=== PATIENT | female | born 1990 | race Hispanic/Latino ===

== ENCOUNTER 2019-01-19 06:55 | Outpatient (CLI) | payer OTHER ==
--- NOTE | 2019-01-19 08:16 | ULT ---
OB ULTRASOUND: HISTORY: anatomy. FINDINGS: There is a single live intrauterine gestation with measurements corresponding to an estimated gestati onal age of 19 weeks 4 days and MOUSTAPHA at 06/11/2019. The estimated weight measures 305 gm or 11 ou nces (34% by Hadlock criteria). measurements are as follows: BPD 4.33 cm, 19 weeks 1 day HC 16.80 cm, 19 weeks 4 days AC 14.68 cm, 20 weeks 0 days FL 3.03 cm, 19 weeks 3 days heart rate measures 144 b.p.m. Placenta is anteriorly located. ABEBE appears visually adequate. The cervical length measures 4.2 cm. A 3-vessel cord, cord insertion, kidneys, bladder, spine, stomach, 4- chamber heart, lateral ve ntricles, cerebellum, lips/nose, upper and lower extremities are visualized. No definite abnor malities are seen. IMPRESSION: Single live intrauterine of 10 weeks 4 days estimated gestational age and estimated date of delivery at 06/11/2019. POS: GAUTAM
== END 2019-01-19 06:56 | disposition home or self-care (01) ==
LOC: BICULT 06:55
PROVIDERS: ATTEND Family Medicine
DX: O09.892 Supervision of other high risk pregnancies, second trimester (principal); Z3A.19 19 weeks gestation of pregnancy
CPT/HCPCS: 76805

== ENCOUNTER 2019-06-05 09:41 | Inpatient (IN) | payer OTHER ==
[2019-06-05] MEDS ORDERED: Ketorolac Tromethamine 30 MG/ML VIAL ONE (09:50)
[2019-06-05] MEDS ORDERED: PHENYLEPHRINE-NS 100 MCG/ML 10 ML SYRINGE ONE (09:50)
[2019-06-05] MEDS ORDERED: Ondansetron PF 4 MG/2 ML Vial ONE (09:50)
[2019-06-05] MEDS ORDERED: Metoclopramide HCl 10 MG/2 ML VIAL ONE (09:50)
[2019-06-05] MEDS ORDERED: Famotidine/PF 20 mg/2ml Vial ONE (10:54)
[2019-06-05 10:55] VITALS: BMI 37.5
[2019-06-05] MEDS ORDERED: Promethazine HCl 25 MG/ML VIAL IM PRN ×3 (10:56→15:12)
[2019-06-05] MEDS ORDERED: Ondansetron PF 4 MG/2 ML Vial IVP PRN ×3 (10:56→15:12)
[2019-06-05] MEDS ORDERED: CEFAZOLIN 2 GM in Premix Bag 1 BAG IVPB SCH (10:56)
[2019-06-05] MEDS ORDERED: Bicitra 30 ML UDCUP PO SCH (10:56)
[2019-06-05] MEDS ORDERED: hydrALAZINE 20 MG/ML VIAL SLOW IVP PRN ×2 (10:56→15:12)
[2019-06-05] MEDS: Lactated Ringer's 1,000 ML IV SCH ×3 (11:06→22:20)
[2019-06-05 11:19] LABS: Hemoglobin 13.4 g/dL (12.0-16.0); Mean Corpuscular HGB CONC 34.4 g/dL (32.0-36.0); Mean Corpuscular Hemoglobin 30.1 pg (27.0-31.0); Mean Corpuscular Volume 87.5 fL (78.0-98.0); Mean Platelet Volume 9.2 fL (7.4-10.4); Platelet Count 229 thou/uL (130-400); RBC Distribution Width 13.1 % (11.5-14.5); Red Blood Cell (RBC) Count 4.46 mill/uL (4.20-5.40); White Blood Cell (WBC) Count 9.9 thou/uL (4.8-10.8)
[2019-06-05] MEDS ORDERED: MORPHINE 5 MG/10 ML PF VIAL ONE (11:54)
[2019-06-05] MEDS ORDERED: Oxytocin 10 UNITS/ML VIAL ONE ×2 (11:55→12:41)
[2019-06-05 11:59] LABS: HBSAg Index 0.27 S/CO (0-0.99); Hep B Surf Ag Non-Reactive S/CO (NonReactive); Syphilis Antibody Nonreactive (Nonreactive); Syphilis Antibody Index 0.03 S/CO (<1.00 Non-Reactive)
[2019-06-05] MEDS ORDERED: HYDROmorphone 2 MG/ML VIAL SLOW IVP PRN (13:06)
[2019-06-05] MEDS ORDERED: Naloxone HCl 0.4 mg/ml Vial IVP PRN ×2 (13:06)
[2019-06-05] MEDS ORDERED: Naloxone HCl 0.4 mg/ml Vial IV PRN (13:06)
[2019-06-05] MEDS ORDERED: diphenhydrAMINE 50 MG/ML VIAL IVP PRN (13:06)
[2019-06-05] MEDS ORDERED: Promethazine HCl 25 MG SUPP PR PRN (13:06)
[2019-06-05] MEDS ORDERED: L&D-Morphine 4 MG/ML VIAL SLOW IVP PRN (13:06)
[2019-06-05] MEDS ORDERED: Meperidine HCl/PF 25 MG/ML VIAL SLOW IVP PRN (13:06)
[2019-06-05] MEDS ORDERED: Ondansetron HCl/PF 4 MG/2 ML Vial IVP PRN (13:06)
[2019-06-05] MEDS ORDERED: Communication Order-Pharmacy FS SCH (13:15)
[2019-06-05] MEDS ORDERED: NS / Oxytocin 40 units/1000ml 1,000 ML ONE (14:19)
[2019-06-05] MEDS ORDERED: Meperidine HCl/PF 25 MG/ML VIAL ONE (14:54)
[2019-06-05] MEDS ORDERED: diphenhydrAMINE 25 MG CAP PO PRN (15:12)
[2019-06-05] MEDS ORDERED: Bisacodyl 10 MG SUPP PR PRN (15:12)
[2019-06-05] MEDS ORDERED: Lanolin Ointment 7 GM TUBE TOP PRN (15:12)
[2019-06-05] MEDS ORDERED: NS / Oxytocin 40 units/1000ml 1,000 ML IV SCH (15:12)
[2019-06-05] MEDS: Ketorolac Tromethamine 30 MG/ML VIAL IVP SCH (18:27)
[2019-06-05] MEDS ORDERED: Ketorolac Tromethamine 30 MG/ML VIAL IVP PRN (21:00)
--- NOTE | 2019-06-05 21:02 | PDOC.OPDEL ---
OB Operative/Delivery Note Pre-Delivery Diagnosis: scheduled section Anesthesia: spinal - Additional Findings/Plan Placenta delivered: manual removal Compilations/Other Findings: Procedure Note Date of Procedure: 06/05/19 Resident Surgeon: Nahed Reynaga, PGY2 Attending Surgeon: Dr. Webster Procedure: Repeat low transverse caesarean section Preoperative Diagnosis: 1)Term intrauterine 2)Previous x1 Postoperative Diagnosis: 1)same as above 2) Previous x2 Anesthesia: spinal Indications: The patient is a 28 year old [id number] female at 39wga who presents for a repeat scheduled Procedure in Detail: After risks, benefits, and alternatives were explained to the patient, she gave informed consent. Pre-operative antibiotics included Cefazolin 2 gram IV. The patient was taken to the operating room and spinal anesthesia was initiated. She was placed in the supine position with a left tilt and prepped and draped in usual sterile fashion. A Pfannenstiel incision was made with a scalpel and carried down to the level of the fascia which was sharply nicked. The fascial cut was extended bilaterally with [place] sissors. The inferior and superior edges of the cut fascial edges were elevated with Krystina clamps and the underlying rectus muscles were sharply and bluntly dissected free. The recti were divided digitally and sharply and retracted manually. The peritoneum was entered and retracted manually. Bladder blade was placed. A low transverse score was made with the scalpel and the uterus was entered in the midline with the scalpel. Clear fluid was seen. The hysterotomy was extended manually. The infant was noted to be vertex and was easily delivered by fundal pressure. Mouth and nares were bulb suctioned. Cord clamped and cut and grossly normal female was handed to waiting nurse. Cord blood was obtained. Placenta was manually extracted, found to be intact with 3 vessel cord and discarded. The uterus was externalized and the endometrium was curetted with a dry lap. The bladder blade was replaced and the uterus was closed with a running locking suture with 0-Monocryl Following this hemostasis was noted. The abdomen was irrigated with saline and suctioned free of clots. Seprafilm was placed on and around the hysterotomy. The uterus was internalized and the hysterotomy was again noted to be hemostatic. The rectus muscles were approximated partially approximated with 0-vicryl. The fascia was closed with a running non-locking 0-PDS suture. The subcutaneous tissue was irrigated and there were no bleeders. The skin was approximated with fiorella. All counts were correct. The patient tolerated the procedure well and was taken to the recovery room in stable condition. Estimated Blood Loss: 750cc Complications: None Findings: Grossly normal female infant with Apgars of 9 and 9. Grossly normal placenta with 3 vessel cord discarded. Drains: Lala to gravity draining clear urine Post delivery plan: routine recovery
[2019-06-05] MEDS: Docusate Calcium (SURFAK) 240 MG CAP PO SCH (21:19)
[2019-06-05] MEDS: Simethicone Chewable 80 MG TAB PO PRN (21:19)
[2019-06-05] MEDS: Ferrous Sulfate 325 MG TAB PO SCH (21:29)
[2019-06-06] MEDS ORDERED: Sodium Chloride 0.9% 10 ML ONE (00:05)
[2019-06-06] MEDS: Ketorolac Tromethamine 30 MG/ML VIAL IVP SCH ×3 (00:19→12:57)
[2019-06-06] MEDS ORDERED: Meperidine HCl/PF 25 MG/ML VIAL IM PRN (02:00)
[2019-06-06] MEDS: HYDROcodone/Acetaminophen 5/325 mg Tablet PO PRN ×5 (04:27→21:57)
[2019-06-06 06:23] LABS: Hemoglobin 9.9 g/dL (12.0-16.0); Mean Corpuscular Hemoglobin 30.1 pg (27.0-31.0); Mean Corpuscular Volume 88.6 fL (78.0-98.0); Mean Platelet Volume 9.1 fL (7.4-10.4); Platelet Count 175 thou/uL (130-400); Red Blood Cell (RBC) Count 3.27 mill/uL (4.20-5.40); White Blood Cell (WBC) Count 10.4 thou/uL (4.8-10.8)
[2019-06-06] MEDS: Simethicone Chewable 80 MG TAB PO PRN ×3 (08:40→21:56)
[2019-06-06] MEDS: Docusate Calcium (SURFAK) 240 MG CAP PO SCH ×2 (08:40→20:53)
[2019-06-06] MEDS: Ferrous Sulfate 325 MG TAB PO SCH ×2 (08:40→20:53)
[2019-06-06] MEDS: Prenatal Vitamin 1 TAB PO SCH (08:45)
[2019-06-06] MEDS ORDERED: Adacel (T-DAP) 0.5 ML SYRINGE IM ONE (09:00)
[2019-06-06] MEDS: Ibuprofen 800 MG TAB PO SCH ×2 (14:32→21:57)
[2019-06-07] MEDS: HYDROcodone/Acetaminophen 5/325 mg Tablet PO PRN ×5 (04:36→21:54)
[2019-06-07] MEDS: Ibuprofen 800 MG TAB PO SCH ×3 (05:49→21:54)
[2019-06-07] MEDS: Simethicone Chewable 80 MG TAB PO PRN ×3 (09:28→18:31)
[2019-06-07] MEDS: Docusate Calcium (SURFAK) 240 MG CAP PO SCH ×2 (09:28→21:54)
[2019-06-07] MEDS: Ferrous Sulfate 325 MG TAB PO SCH ×2 (09:28→21:54)
[2019-06-07] MEDS: Prenatal Vitamin 1 TAB PO SCH (09:28)
[2019-06-08] MEDS: HYDROcodone/Acetaminophen 5/325 mg Tablet PO PRN ×3 (04:07→13:01)
[2019-06-08] MEDS: Ibuprofen 800 MG TAB PO SCH ×2 (06:03→13:02)
[2019-06-08] MEDS: Ferrous Sulfate 325 MG TAB PO SCH (07:38)
[2019-06-08] MEDS: Docusate Calcium (SURFAK) 240 MG CAP PO SCH (07:38)
[2019-06-08] MEDS: Prenatal Vitamin 1 TAB PO SCH (07:38)
[2019-06-08 08:47] VITALS: BP 121/87; TEMP 98
== END 2019-06-08 17:15 | disposition home or self-care (01) | DRG 788 ==
LOC: L&D 09:41 → 3SW 15:36 → EDSTATUS 06-09 13:48
PROVIDERS: ADMIT Family Medicine; ATTEND Family Medicine
PROC: 10D00Z1 Extraction of Products of Conception, Low, Open Approach (ICD-10-PCS; principal; 2019-06-05)
DX: O34.211 Maternal care for low transverse scar from previous cesarean delivery (principal); Z3A.39 39 weeks gestation of pregnancy; Z37.0 Single live birth
CPT/HCPCS: 36415; 51702; 85027; 86780; 86850; 86900; 86901; 87340; J0690; J1885; J2175; J2274; J2405; J2590; J2765; Q0163; S0028

== ENCOUNTER 2022-06-08 14:04 | Outpatient (CLI) | payer BC, OTHER | END 2022-06-08 14:05 | disposition home or self-care (01) | LOC: BICULT 14:04 | PROVIDERS: ATTEND Family Medicine | DX: O09.892 Supervision of other high risk pregnancies, second trimester (principal) | CPT/HCPCS: 76805 ==

== ENCOUNTER 2022-07-23 20:45 | Emergency (ER) | payer BC, OTHER | END 2022-07-23 22:22 | disposition home or self-care (01) | LOC: ERS 20:45 | DX: O9A.213 Injury, poisoning and certain other consequences of external causes complicating pregnancy, third trimester (principal); S39.91XA Unspecified injury of abdomen, initial encounter; Z3A.29 29 weeks gestation of pregnancy | CPT/HCPCS: 99283 ==

== ENCOUNTER 2024-05-14 10:22 | Outpatient (CLI) | payer OTHER | END 2024-05-14 10:23 | disposition home or self-care (01) | LOC: ULT 10:22 | PROVIDERS: ATTEND Student in an Organized Health Care Education/Training Program | DX: R10.84 Generalized abdominal pain (principal); K76.0 Fatty (change of) liver, not elsewhere classified; K82.8 Other specified diseases of gallbladder | CPT/HCPCS: 76700 ==

== ENCOUNTER 2025-03-20 10:57 | Outpatient (CLI) | payer BC | END 2025-03-20 10:58 | disposition home or self-care (01) | LOC: ULT 10:57 | PROVIDERS: ATTEND Student in an Organized Health Care Education/Training Program | DX: N92.0 Excessive and frequent menstruation with regular cycle (principal) | CPT/HCPCS: 76856 ==